=== PATIENT | female | born 1975 | race Hispanic/Latino ===

== ENCOUNTER 2019-12-02 07:32 | Day surgery (SDC) | payer OTHER ==
--- OUTSIDE RECORDS SUMMARY | 2019-12-02 07:36 | XMS REPORT | Summary of Care ---
:1975 Author Organization [facility] Address [address] [place] [address] Care Team Providers Name Role Phone Rita Benitez [facility] Primary Care Provider Reason for Visit Reason Comments Talk To Nurse Encounter Details Date Type Department Care Team Description 09/30/2019 Telephone [facility]- Antonia Benitez, Talk To Nurse [facility] 110[address] [facility] 110[address] [place] [address] 955 [facility] [phone] [place], [place] [address] [phone] Allergies No Known Allergiesdocumented as of this encounter (statuses as of 09/30/2019) Medications Medication Sig Dispensed Refills Start Date End Date Status norethin-e.estradiol Take 1 tablet by 1 Package 11 07/22/2019 Active triphasic 0.5/0.75/1 mg- mouth daily. 35 mcg tabletIndications: Encounter for other contraceptive management documented as of this encounter (statuses as of 09/30/2019) Active Problems Problem Noted Date Well woman exam 06/08/2015 ASCUS on Pap smear 05/10/2013 Overview: Negative HPV. Repeat co-testing in 3 yea rs. Contraceptive management 05/03/2013 documented as of this encounter (statuses as of 09/30/2019) Resolved Problems Problem Noted Date Resolved Date Over weight 06/08/2015 06/13/2016 Constipation 01/03/2014 06/08/2015 Encounter for routine gynecological examination 05/03/2013 01/03/2014 Overview: ICD10 Diagnosis Term Back Tufter Utility Rubella immune 05/03/2013 06/08/2015 documented as of this encounter (statuses as of 09/30/2019) Immunizations Name Administration Dates Next Due Rubella 01/17/2008 TDAP 06/19/2017 Td 05/03/2007 documented as of this encounter Social History Tobacco Use Types Packs/Day Years Used Date Never Smoker Smokeless Tobacco: Never Used Alcohol Use Drinks/Week oz/Week Comments Yes 0 Standard drinks or equivalent 0.0 socially Sex Assigned at Date Recorded Not on file Job Start Date Occupation Industry Not on file Not on file Not on file Travel History Travel Start Travel End No recent travel history available. COVID-19 Exposure Response Date Recorded In the last month, have you been in contact with Yes 09/19/2019 7:35 AM CDT someone who was confirmed or suspected to have Coronavirus / COVID-19? documented as of this encounter Last Filed Vital Signs Not on filedocumented in this encounter Plan of Treatment Health Maintenance Due Date Last Done Comments PAP SMEAR 06/14/2019 06/13/2016, 05/03/2013, 02/22/2009, Additional history exists INFLUENZA VACCINE (#1) 2019 Depression Screening 07/21/2020 07/22/2019 Breast Cancer Screening 07/28/2020 07/29/2019, 07/22/2019, (MAMMOGRAM) 07/09/2018, Additional history exists DTaP,Tdap,and Td Vaccines 06/20/2027 06/19/2017, 05/03/2007 (2 - Td) PNEUMOCOCCAL 0-64 YEARS Aged Out No longe r eligible COMBINED SERIES based on patient 's age to complete this topic documented as of this encounter Results Not on filedocumented in this encounter Insurance Payer Benefit Plan / Subscriber ID Effective Phone Address T ype Group Dates HIM [facility] [id number] 2015-Jaylen [phone] [facility] [phone] [place] [address] documented as of this encounter Advance Directives Type Date Recorded Patient Sales Planning Coordinator Explanati on Advance Directives and Living 07/01/2016 3:01 PM Will Power of Claims Sorter 10/25/2015 3:01 PM Name Relationship Healthcare Agent Communication Relationship Kristi Duncan Child Primary healthcare agent
--- OUTSIDE RECORDS SUMMARY | 2019-12-02 07:36 | XMS REPORT ---
:1975 Author Organization eClinicalWorks Care Team Providers Name Role Phone Ankit Parkinsonh Provider Role Unavailable Allergies, Adverse Reactions, Alerts Substance Reaction Event Type N.K.D.A. Info Not Available Non Drug Allergy Problems Problem Type Condition Code Onset Dates Condition Statu s Problem NAFLD (nonalcoholic fatty liver K76.0 Active disease) Problem GERD without esophagitis K21.9 Act annalise Problem Allergic rhinitis, unspecified J30.9 Active seasonality, unspecified trigger Assessment Lower urinary tract symptoms R39.9 Active Assessment Increased frequency of urination R35.0 Active Problem Irritable bowel syndrome with K58.1 Active constipation Medications Medication Code Code Instructions Start End Status Dosage System Date Date Senokot Extra [facility] 19528266498 17.2 MG Orally Active 1 tablet Strength Once a day at bedtime as needed Linzess [facility] 62411636068 72 MCG Orally Active 1 caps ule Once a day Macrobid [facility] 30063916197 100 MG Orally October 02Oct 07, Active 1 ca psule BID 2019 [address] [facility] 69275529711 40 MG Orally Active 1 tabl et Once a day Results No Known Results Summary Purpose eClinicalWorks Submission
--- OUTSIDE RECORDS SUMMARY | 2019-12-02 07:36 | XMS REPORT | Summary of Care ---
:1975 Author Organization [facility] Address [address] [place] [address] Care Team Providers Name Role Phone Eli Rita [facility] Primary Care Provider Encounter Details Date Type Department Care Team Description 09/21/2019 Patient Secure [facility] Doctor Unassigned, [address] [place] [address] [place] [address] [phone] [place] [address] [place] [address] Allergies No Known Allergiesdocumented as of this [...] examination 05/03/2013 01/03/2014 Overview: ICD10 Diagnosis Term [employer] Coxswain Utility Rubella immune 05/03/2013 06/08/2015 documented as [...] / Subscriber ID Effective Phone Address T e Group Dates [facility] [id number] 2015-Jaylen [phone] [address] HMO HEALTH [employer] [facility] nt [phone] [place] [address] documented as of this encounter Advance Directives Type Date Recorded Patient Level Glass Vial Filler Explanati on Advance Directives and Living 07/01/2016 3:01 PM Will Power of Tower Observer 10/25/2015 3:01 PM Name Relationship Healthcare Agent Communication Relationship Kristi Duncan Child Primary healthcare agent
--- OUTSIDE RECORDS SUMMARY | 2019-12-02 07:36 | XMS REPORT ---
:1975 Author Organization eClinicalWorks Care Team Providers Name Role Phone Hayden Parkinson Provider Role Unavailable Allergies No Known Allergies Problems Problem Type Condition Code Onset Dates Condition Statu s Problem NAFLD (nonalcoholic fatty liver K76.0 Active disease) Problem GERD without esophagitis K21.9 Act annalise Problem Allergic rhinitis, unspecified J30.9 Active seasonality, unspecified trigger Assessment Screening for colon cancer Z12.11 A ctive Problem Irritable bowel syndrome with K58.1 Active constipation Medications No Known Medications Results No Known Results Summary Purpose eClinicalWorks Submission
--- OUTSIDE RECORDS SUMMARY | 2019-12-02 07:36 | XMS REPORT | Continuity of Care Document ---
:1975 Author Organization [facility] t Address [address] [place] [address] Care Team Providers Name Role Phone Rita Hayes Attending Clinician Problems Condition Condition Condition Status Onset Resolution Last Treating Co mments Source Name Details Category Date Date Treatment Clinician Date GERD GERD Problem Active [facility] without without [facility] - esophagiti esophagiti Me moria s s l Outpati ent Clinics Irritable Irritable Problem Active [facility] bowel bowel Lukes - syndrome syndrome Memori a with with l constipati constipati Ou tpati on on ent Clinics NAFLD NAFLD Problem Active [facility] (nonalcoho (nonalcoho Raquel kes - lic fatty lic fatty Joaquin eleni liver liver l disease) disease) Outpat i ent Clinics Allergic Allergic Problem Active [facility] rhinitis, rhinitis, Luke s - unspecifie unspecifie Me moria d d l seasonalit seasonalit Ou tpati y, y, ent unspecifie unspecifie Cl inics d trigger d trigger Screening Screening Diagnosis Active [facility] for colon for colon Luke s - cancer cancer Memoria l Outpati ent Clinics Allergies, Adverse Reactions, Alerts This patient has no known allergies or adverse reactions. Medications Ordered Filled Start Stop Current Ordering Indication Dosage Frequency Signature Comments Components Source Medication Medication Date Date Medication? Clinician (SIG) Name Name Protonix Protonix 2019-0 Yes Hayden [address] [facility] 5-03 Parkinson [facility] - 00:00: Memoria 00 l Outpati ent Clinics Senokot Senokot Yes Hayden [address] [facility] Extra Extra Parkinson at bedtime [facility]ukes - Strength Strength as needed Me moria l Outpati ent Clinics Ernesto Orozco 2019- No Hayden [address] 04-05 Parkinson [facility] - 00:00 Memoria :00 l Outpati ent Clinics Immunizations Ordered Filled Immunization Date Status Comments Sour e Immunization Name Name Anastasiya Langford 2018-05-[address] [facility] - [facility]00 [facility] Procedures This patient has no known procedures. Encounters Start End Encounter Admission Attending Care Care Encounter Source Date/Time Date/Time Type Type Clinicians Facility Department ID 2019-10-21 2019-10-21 [facility] [id number] 15:48:00 15:48:00 t [facility] [email or web address] Medicine Medicine Outpati ent Clinics 2019-10-21 2019-10-21 [facility] [id number] 09:30:00 09:30:00 t [facility] [email or web address] Medicine Medicine Outpati ent Clinics 2019-10-03 2019-10-03 [facility] [id number] 13:00:00 13:00:00 t [employer] [facility] [email or web address] Medicine l Medicine Outpati ent Clinics 2019-09-30 2019-09-30 [facility] [id number] 14:26:00 14:26:00 t [employer] [facility] [email or web address] Medicine Medicine Outpati ent Clinics 2019-09-30 2019-09-30 [facility] [id number] 00:00:00 00:00:00 Antonia Salinas POLE SANDER OPERATOR [id number] [facility] [id number] MATERNAL [id number] & CHILD [address] [place] [address] 2018-07-09 2018-07-09 [facility] [id number] 08:30:00 08:30:00 t [employer] [facility] [email or web address] [facility] Medicine Outpati ent Clinics 2018-05-31 2018-05-31 [facility] [id number] 08:03:00 08:03:00 t [facility] [facility] [employer] [facility] 2018-05-28 2018-05-28 Outpatient Pradeep Briseno [id number] 09:45:00 09:45:00 t [employer] [facility] ent [facility] Results This patient has no known results.
--- OUTSIDE RECORDS SUMMARY | 2019-12-02 07:36 | XMS REPORT | Summary of Care ---
:1975 Author Organization [facility] Address [address] [place] [address] Care Team Providers Name Role Phone Rita Benitez [facility] Primary Care Provider Reason for Visit Reason Comments Talk To Nurse Encounter Details Date Type Department Care Team Description 09/30/2019 Telephone [facility]- Antonia Benitez, Talk To Nurse [facility] 1108 [facility] 1108 [place] [address] 955 [facility] [phone] [place], [place] [address] [phone] Allergies No Known Allergiesdocumented as of this [...] examination 05/03/2013 01/03/2014 Overview: ICD10 Diagnosis Term Manager Clinical Pharmacy Utility Rubella immune 05/03/2013 06/08/2015 documented as [...] Phone Address T ype Group Dates HIM [facility] [id number] 2015-Jaylen [phone] [employer] [facility] [employer] [facility] [employer] nt [phone] [place] [address] documented as of this encounter Advance Directives Type Date Recorded Patient Airconditioning Drafting Officer Explanati on Advance Directives and Living 07/01/2016 3:01 PM Will Power of Revenue Cycle Analyst 10/25/2015 3:01 PM Name Relationship Healthcare Agent Communication Relationship Kristi Duncan Child Primary healthcare agent
--- OUTSIDE RECORDS SUMMARY | 2019-12-02 07:36 | XMS REPORT | Summary of Care ---
:1975 Author Organization [facility] Address [address] [place] [address] Care Team Providers Name Role Phone [facility] Reason for Visit Reason Comments Exposure covid 19 LAB Encounter Details Date Type Department Care Team Description 09/19/2019 Laboratory Only [place] [facility] Yanelis Berg, TANO [address] [facility] [address] [place], [place] [id number] Suspected 2019 [facility] Medicine - [facility], Adc Fam Pob I Coronavirus Infection [address] [facility] (Primary D x) [place] [phone] Allergies No Known Allergiesdocumented as of this encounter (statuses as of 09/19/2019) Medications Medication Sig Dispensed Refills Start Date End Date Status norethin-e.estradiol Take 1 tablet by 1 Package 11 07/22/2019 Active triphasic 0.5/0.75/1 mg- mouth daily. 35 mcg tabletIndications: Encounter for other contraceptive management documented as of this encounter (statuses as of 09/19/2019) Active Problems Problem Noted Date Well woman exam 06/08/2015 ASCUS on Pap smear 05/10/2013 Overview: Negative HPV. Repeat co-testing in 3 yea rs. Contraceptive management 05/03/2013 documented as of this encounter (statuses as of 09/19/2019) Resolved Problems Problem Noted Date Resolved Date Over weight 06/08/2015 06/13/2016 Constipation 01/03/2014 06/08/2015 Encounter for routine gynecological examination 05/03/2013 01/03/2014 Overview: ICD10 Diagnosis Term Recreational Counselor Utility Rubella immune 05/03/2013 06/08/2015 documented as of this encounter (statuses as of 09/19/2019) Immunizations Name Administration Dates Next Due Rubella [...] filedocumented in this encounter Plan of Treatment Name Type Priority Associated Diagnoses Order S chedule COVID-19 (PCR MOLECULAR LAB Routine Suspected 2018 No micah Ordered: 09/19/2019 TESTING) Coronavirus Infection Health Maintenance Due Date Last Done Comments [...] Results Not on filedocumented in this encounter Visit Diagnoses Diagnosis Suspected 2018 Novel Coronavirus Infecti on - Primary documented in this encounter Insurance Payer Benefit Plan / Subscriber ID Effective Phone Address T e Group Dates [facility] [id number] 2015-Jaylen [phone] [email or web address] [phone] [place] [address] documented as of this encounter Advance Directives Type Date Recorded Patient Program Evaluator Explanati on Advance Directives and Living 07/01/2016 3:01 PM Will Power of Furnace Process Supervisor 10/25/2015 3:01 PM Name Relationship Healthcare Agent Communication Relationship Kristi Duncan Child Primary healthcare agent
--- OUTSIDE RECORDS SUMMARY | 2019-12-02 07:36 | XMS REPORT ---
:1975 Author Organization eClinicalWorks Care Team Providers Name Role Phone Ankit Parkinsonh Provider Role Unavailable Allergies No Known Allergies Problems Problem Type Condition Code Onset Dates Condition Statu s Problem NAFLD (nonalcoholic fatty liver K76.0 Active disease) Problem GERD without esophagitis K21.9 Act annalise Problem Allergic rhinitis, unspecified J30.9 Active seasonality, unspecified trigger Problem Irritable bowel syndrome with K58.1 Active constipation Medications No Known Medications Results No Known Results Summary Purpose eClinicalWorks Submission
--- OUTSIDE RECORDS SUMMARY | 2019-12-02 07:36 | XMS REPORT | Summary of Care ---
:1975 Author Organization [facility] Address [address] [place] [address] Care Team Providers Name Role Phone Rita Benitez Primary Care Provider Reason for Visit Reason Comments Results Encounter Details Date Type Department Care Team Description 09/22/2019 Telephone [facility] and Smita Gomez FNP Results [place] [address] [address] [place] [address] [phone] Allergies No Known Allergiesdocumented as of this encounter (statuses as of 09/22/2019) Medications Medication Sig Dispensed Refills Start Date End Date Status norethin-e.estradiol Take 1 tablet by 1 Package 11 07/22/2019 Active triphasic 0.5/0.75/1 mg- mouth daily. 35 mcg tabletIndications: Encounter for other contraceptive management documented as of this encounter (statuses as of 09/22/2019) Active Problems Problem Noted Date Well woman exam 06/08/2015 ASCUS on Pap smear 05/10/2013 Overview: Negative HPV. Repeat co-testing in 3 yea rs. Contraceptive management 05/03/2013 documented as of this encounter (statuses as of 09/22/2019) Resolved Problems Problem Noted Date Resolved Date Over weight 06/08/2015 06/13/2016 Constipation 01/03/2014 06/08/2015 Encounter for routine gynecological examination 05/03/2013 01/03/2014 Overview: ICD10 Diagnosis Term Academic Intern Utility Rubella immune 05/03/2013 06/08/2015 documented as of this encounter (statuses as of 09/22/2019) Immunizations Name Administration Dates Next Due Rubella [...] Effective Phone Address T ype Group Dates [facility] [id number] 2015-Jaylen [phone] [address] [employer] [facility] [employer] [facility] [employer] nt [phone] [place] [address] documented as of this encounter Advance Directives Type Date Recorded Patient Shellfish Processing Machine Tender Explanati on Advance Directives and Living 07/01/2016 3:01 PM Will Power of Surgical Services Tech 10/25/2015 3:01 PM Name Relationship Healthcare Agent Communication Relationship Kristi Duncan Child Primary healthcare agent
--- OUTSIDE RECORDS SUMMARY | 2019-12-02 07:36 | XMS REPORT ---
:1975 Author Organization eClinicalWorks Care Team Providers Name Role Phone Ankit Parkinsonh Provider Role Unavailable Allergies, Adverse Reactions, Alerts Substance Reaction Event Type N.K.D.A. Info Not Available Non Drug Allergy Problems Problem Type Condition Code Onset Dates Condition Statu s Assessment GERD without esophagitis K21.9 Act annalise Assessment Irritable bowel syndrome with K58.1 Active constipation Assessment NAFLD (nonalcoholic fatty liver K76.0 Active disease) Assessment Abdominal bloating R14.0 Active Problem NAFLD (nonalcoholic fatty liver K76.0 Active disease) Problem GERD without esophagitis K21.9 Act annalise Problem Allergic rhinitis, unspecified J30.9 Active seasonality, unspecified trigger Assessment Well adult on routine health check Z00.00 Active Assessment Adult BMI 25.0-25.9 kg/sq m Z68.25 Active Problem Irritable bowel syndrome with K58.1 Active constipation Medications Medication Code Code Instructions Start End Status Dosage System Date Date Protonix [facility] 94459578364 40 MG Orally Active 1 tabl et Once a day Senokot Extra [facility] 23436584190 17.2 MG Orally Active 1 tablet Strength Once a day at bedtime as needed Linzess [facility] 04814822381 72 MCG Orally Active 1 caps ule Once a day Results No Known Results Summary Purpose eClinicalWorks Submission
[2019-12-02 08:07] LABS: Specific Gravity 1.025 (1.005-1.030)
[2019-12-02 08:27] VITALS: O2SAT 100
[2019-12-02] MEDS ORDERED: EPINEPHRINE/PF 1 MG/ML AMP ONE (10:18)
[2019-12-02] MEDS: Ringers Lactate 1,000 ML IV ONE ×2 (10:46→11:44)
[2019-12-02] MEDS ORDERED: propofoL 200 MG/20 ML VIAL IV ONE (11:54)
[2019-12-02] MEDS ORDERED: LIDOCAINE 1% MPF 5 ML VIAL ONE (11:55)
--- NOTE | 2019-12-02 12:21 | ENDO RPT ---
[address], [address] EGD PROCEDURE REPORT EXAM DATE: 12/02/2019 PATIENT NAME: Clare Duncan MR#: [id number] BIRTHDATE: 1975 ATTENDING: Manoj Akins DR STATUS: outpatient YIELD LOSS INSPECTOR: Hardeep Carvajal and Mary Lou Hein RN INDICATIONS: The patient is a 44 yr old Female here for an EGD due to GERD PROCEDURE PERFORMED: EGD with biopsy for H. pylori MEDICATIONS: Per Anesthesia. TOPICAL ANESTHETIC: none CONSENT: The patient understands the risks and benefits of the procedure and understands that these risks include, but are not limited to: sedation, allergic reaction, infection, perforation and/or bleeding. Alternative means of evaluation and treatment include, among others: physical exam, x-rays, and/or surgical intervention. The patient elects to proceed with this endoscopic procedure. DESCRIPTION OF PROCEDURE: During intra-op preparation period all mechanical medical equipment was checked for proper function. Hand hygiene and appropriate measures for infection prevention was taken. Procedure, possible complications, and alternatives including but not limited to the possibility of bleeding, perforation, tear, infection, sepsis, need for surgery, need for blood transfusion, and anesthesia related complications were explained to the patient. After the risks, benefits and alternatives of the procedure were thoroughly explained, Informed consent was verified, confirmed and timeout was successfully executed by the treatment team. The patient was placed in the left lateral position. The patient was anesthetized with topical anesthesia. Through the anesthetized oropharyngeal area, the scope was passed without any difficulty. The [id number] ([id number]) and [id number] ([id number]) endoscope was introduced through the mouth and advanced to the second portion of the duodenum. Retroflexed views revealed no abnormalities. The gastroscope was then slowly withdrawn and removed. Mild gastritis was found at the pylorus. A biopsy for H. pylori was taken. ADVERSE EVENTS: There were no complications. IMPRESSIONS: Mild gastritis was found at the pylorus RECOMMENDATIONS: 1. anti-reflux regimen 2. await biopsy results 3. follow-up: office 2 week(s) 4. avoid NSAIDS 5. follow-up of helicobacter pylori status, treat if indicated REPEAT EXAM: Manoj Akins DR eSigned: Manoj Akins DR 12/02/2019 12:20 PM cc: CPT CODES: ICD9 CODES: PATIENT NAME: Clare Duncan MR#: [id number]
--- NOTE | 2019-12-02 12:23 | ENDO RPT ---
[address], [address] COLONOSCOPY PROCEDURE REPORT EXAM DATE: 12/02/2019 PATIENT NAME: Clrae Duncan MR #: [id number] BIRTHDATE: 1975 ATTENDING: Manoj Akins DR STATUS: outpatient MATERIALS SCHEDULER: Mary Lou Hein RN and Hardeep Dorman [facility] INDICATIONS: The patient is a 44 yr old Female here for a colonoscopy due to colon cancer screening PROCEDURE PERFORMED: Screening Colonoscopy MEDICATIONS: Per Anesthesia. ESTIMATED BLOOD LOSS: None CONSENT: The patient understands the risks and benefits of the procedure and understands that these risks include, but are not limited to: sedation, allergic reaction, infection, perforation and/or bleeding. Alternative means of evaluation and treatment include, among others: physical exam, x-rays, and/or surgical intervention. The patient elects to proceed with this endoscopic procedure. DESCRIPTION OF PROCEDURE: During intra-op preparation period all mechanical medical equipment was checked for proper function. Hand hygiene and appropriate measures for infection prevention was taken. Procedure, possible complications, alternatives including, but not limited to possibility of bleeding, perforation, tear, infection, sepsis, need for surgery, need for blood transfusion, were explained to the patient. After the risks, benefits and alternatives of the procedure were thoroughly explained, Informed consent was verified, confirmed and timeout was successfully executed by the treatment team. The patient was placed in the left lateral position. A digital rectal exam was performed and revealed internal hemorrhoids. After appropriate level of anesthesia, the scope was passed. The EC-[id number] ([id number]) endoscope was introduced through the anus and advanced to the cecum, which was identified by both the appendix and ileocecal valve. The quality of the prep was fair. The instrument was then slowly withdrawn as the colon was fully examined. Scope withdrawal time was 9 minutes. COLON FINDINGS: Small internal hemorrhoids were found. The colon mucosa was otherwise normal. Retroflexed views revealed no abnormalities. The scope was then completely withdrawn from the patient and the procedure terminated. ADVERSE EVENTS: There were no complications. IMPRESSIONS: 1. Small internal hemorrhoids 2. The colon mucosa was otherwise normal RECOMMENDATIONS: 1. fiber rich diet 2. Monitor for any evidence of rectal bleeding. 3. See EGD report. RECALL: Return in 10 year(s) for Colonoscopy. Fecal FIT test in 4 years - stool blood Manoj Akins DR eSigned: Manoj Akins DR 12/02/2019 12:22 PM cc: CPT CODES: ICD9 CODES: PATIENT NAME: Clare Duncan MR#: [id number]
[2019-12-02 13:38] VITALS: TEMP 97.9
[2019-12-02 13:40] VITALS: BP 136/74
== END 2019-12-02 13:05 | disposition home or self-care (01) ==
LOC: OR 07:32
PROVIDERS: ATTEND Surgery
PROC: 0DB78ZX Excision of Stomach, Pylorus, Via Natural or Artificial Opening Endoscopic, Diagnostic (ICD-10-PCS; 2019-12-02)
PROC: 0DJD8ZZ Inspection of Lower Intestinal Tract, Via Natural or Artificial Opening Endoscopic (ICD-10-PCS; principal; 2019-12-02 10:15)
PROC: 0DB98ZX Excision of Duodenum, Via Natural or Artificial Opening Endoscopic, Diagnostic (ICD-10-PCS; 2019-12-02 10:15)
DX: K29.50 Unspecified chronic gastritis without bleeding (principal); Z20.828 Contact with and (suspected) exposure to other viral communicable diseases
CPT/HCPCS: 88312; 81025; 88305; 45378; 43239; U0002; J2704; J0171; J7120